=== PATIENT | female | born 1990 | race African-American/Black ===

== ENCOUNTER 2022-10-11 13:42 | Emergency (ER) | payer SELFPAY ==
[2022-10-11 13:56] VITALS: BP 118/68; PULSE 85; RESP 18; TEMP 98.6; BMI 31.6
== END 2022-10-11 14:37 | disposition home or self-care (01) ==
LOC: JERFT 13:42 → JER 13:42 → JERFT 14:37
DX: H57.89 Other specified disorders of eye and adnexa (principal); R09.81 Nasal congestion; H10.31 Unspecified acute conjunctivitis, right eye
CPT/HCPCS: 99283-25

== ENCOUNTER 2022-12-22 12:22 | Emergency (ER) | payer BC ==
[2022-12-22 12:48] VITALS: BP 112/67; PULSE 74; RESP 18; TEMP 98.1; BMI 37.1
[2022-12-22] MEDS ORDERED: FLUCONAZOLE 150 MG TABLET PO ONE ×2 (13:33→13:51)
[2022-12-22 14:26] LABS: EPI CELLS 18 /uL (0-25.1); HYALINE CASTS 0 /uL (0-3.1); PH,URINE 6.5 (5.0-8.0); URINE APPEARANCE CLEAR; URINE BACTERIA 95 /uL (0-1359); URINE BILIRUBIN NEGATIVE (NEGATIVE); URINE COLOR YELLOW; URINE GLUCOSE (UA) NEGATIVE (NEGATIVE); URINE KETONE NEGATIVE (NEGATIVE); URINE LEUK ESTERASE TRACE (NEGATIVE); URINE NITRITE NEGATIVE (NEGATIVE); URINE PROTEIN NEGATIVE (NEGATIVE); URINE RBC 1 /uL (0-23.9); URINE WBC 2 /uL (0-25.8)
[2022-12-22 15:00] LABS: SYPHILIS W/ RPR CONF NON-REACTIVE (NONREACTIVE)
[2022-12-22 15:29] LABS: HIV INTERPRETATION NEGATIVE (NEGATIVE)
== END 2022-12-22 14:40 | disposition home or self-care (01) ==
LOC: JERFT 12:22
DX: L29.2 Pruritus vulvae (principal); N89.8 Other specified noninflammatory disorders of vagina; B37.31 Acute candidiasis of vulva and vagina
CPT/HCPCS: 36415; 81003; 84703; 86780; 87086; 87389; 87491; 87591; 87661; 99283-25

== ENCOUNTER 2023-02-01 15:11 | Emergency (ER) | payer BC ==
[2023-02-01 15:27] VITALS: BP 110/70; PULSE 90; RESP 18; TEMP 98.7; BMI 32.5
== END 2023-02-01 16:35 | disposition left against medical advice (07) ==
LOC: JER 15:11
DX: Z32.00 Encounter for pregnancy test, result unknown (principal)
CPT/HCPCS: 99281-25

== ENCOUNTER 2023-02-03 09:11 | Emergency (ER) | payer BC ==
[2023-02-03 09:29] VITALS: TEMP 98.4; BMI 30.4
[2023-02-03 10:11] LABS: HCG,QUALITATIVE URINE Positive
[2023-02-03 10:13] LABS: URINE APPEARANCE CLEAR; URINE BILIRUBIN NEGATIVE (NEGATIVE); URINE COLOR YELLOW; URINE GLUCOSE (UA) NEGATIVE (NEGATIVE); URINE KETONE NEGATIVE (NEGATIVE); URINE LEUK ESTERASE NEGATIVE (NEGATIVE); URINE NITRITE NEGATIVE (NEGATIVE); URINE PROTEIN NEGATIVE (NEGATIVE); URINE UROBILINOGEN 0.2 mg/dL (0.2-1.0)
[2023-02-03 11:00] LABS: BASO % 0.6 % (0-2.0); EOS % 0.5 % (0-4.5); HEMATOCRIT 38.7 % (32.4-45.2); HEMOGLOBIN 13.6 GM/dL (10.7-15.3); LYMPH % 27.5 % (8-40); MCH 31.8 pg (25.7-33.7); MCHC 35.1 g/dl (32.0-36.0); MEAN CELL VOLUME 90.6 fl (80-96); MEAN PLT VOLUME 8.6 fl (7.5-11.1); MONO % 8.1 % (3.8-10.2); NEUT % 63.3 % (42.8-82.8); PLATELET COUNT 258 10^3/uL (134-434); RBC 4.27 M/mm3 (3.60-5.2); RDW 14.3 % (11.6-15.6); WHITE BLOOD COUNT 4.8 K/mm3 (4.0-10.0)
[2023-02-03 11:06] LABS: INR 0.97 (0.83-1.09); PROTHROMBIN TIME (PATIENT) 11.3 SEC (9.7-13.0)
[2023-02-03 11:09] LABS: ACTIVATED PTT 30.4 SECONDS (25.2-36.5)
[2023-02-03 11:21] LABS: CALCIUM 9.2 mg/dL (8.5-10.1)
[2023-02-03 11:22] LABS: BLOOD UREA NITROGEN 9.4 mg/dL (7-18)
[2023-02-03 11:25] LABS: CREATININE 0.8 mg/dL (0.55-1.3)
[2023-02-03 11:26] LABS: BILIRUBIN,TOTAL 0.5 mg/dL (0.2-1); TOT PROT 7.4 g/dl (6.4-8.2)
[2023-02-03 15:34] VITALS: BP 118/68; PULSE 78; RESP 18
== END 2023-02-03 15:34 | disposition home or self-care (01) ==
LOC: JER 09:11
DX: Z32.01 Encounter for pregnancy test, result positive (principal); Z3A.01 Less than 8 weeks gestation of pregnancy
CPT/HCPCS: 36415; 76817-TC; 80053; 81003; 84702; 84703; 85025; 85610; 85730; 86850; 86900; 86901; 87086; 99284-25

== ENCOUNTER 2024-03-27 06:03 | Emergency (ER) | payer BC, OTHER ==
[2024-03-27 06:12] VITALS: BP 100/64; PULSE 76; RESP 18; TEMP 98.6; BMI 33.8
[2024-03-27 07:57] LABS: EPI CELLS 33 /uL (0-25.1); HYALINE CASTS 1 /uL (0-3.1); PH,URINE 5.5 (5.0-8.0); URINE APPEARANCE CLOUDY; URINE BACTERIA 486 /uL (0-1359); URINE BILIRUBIN NEGATIVE (NEGATIVE); URINE COLOR YELLOW; URINE GLUCOSE (UA) NEGATIVE (NEGATIVE); URINE KETONE NEGATIVE (NEGATIVE); URINE LEUK ESTERASE TRACE (NEGATIVE); URINE NITRITE NEGATIVE (NEGATIVE); URINE PROTEIN NEGATIVE (NEGATIVE); URINE RBC 7 /uL (0-23.9); URINE WBC 33 /uL (0-25.8)
[2024-03-27 07:58] LABS: HCG,QUALITATIVE URINE Negative
[2024-03-27] MEDS ORDERED: FLUCONAZOLE 150 MG TABLET PO ONE (08:46)
[2024-03-27] MEDS: FLUCONAZOLE 150 MG TABLET PO ONE (08:48)
== END 2024-03-27 09:15 | disposition home or self-care (01) ==
LOC: JER 06:03
DX: L29.2 Pruritus vulvae (principal); N76.0 Acute vaginitis
CPT/HCPCS: 81003; 84703; 87086; 99283-25